=== PATIENT | female | born 1990 | race Caucasian/White ===

== ENCOUNTER 2017-05-08 09:12 | Emergency (ER) | payer SELFPAY ==
[~2017-05-08] VITALS: Ht 165.1 cm; Wt 80.0 kg
[~2017-05-08 09:12] MED LIST: CIPR500T4 PO; EMTR1TAB11 PO; HYDR-3498 PO; IBUP-1542 PO; POTA20TA15 PO; RALT400T4 PO
[2017-05-08 09:14] VITALS: Ht 165.1 cm; Wt 80.0 kg
[2017-05-08 09:56] LABS: ADD SCAN DIFF NO
[2017-05-08 09:58] LABS: ABNORMAL IP MESSAGE 1; BASOPHILS % 0.2 % (0.0-2.0); EOSINOPHILS # 0.2 10^3/ul (0.0-0.5); EOSINOPHILS % 3.4 % (0.0-7.0); HEMATOCRIT 41.8 % (37.0-47.0); HEMOGLOBIN 13.7 g/dl (12.0-16.0); LYMPHOCYTES # 1.9 10^3/ul (0.8-2.9); LYMPHOCYTES % 29.5 % (15.0-51.0); MEAN CORPUSCULAR HEMOGLOBIN 28.1 pg (29.0-33.0); MEAN CORPUSCULAR HGB CONC 32.8 g/dl (32.0-37.0); MEAN CORPUSCULAR VOLUME 85.7 fl (82.0-101.0); MEAN PLATELET VOLUME 13.3 fl (7.4-10.4); MONOCYTE # 0.4 10^3/ul (0.3-0.9); MONOCYTES % 5.8 % (0.0-11.0); NEUTROPHILS % 60.8 % (39.0-77.0); PLATELET COUNT 132 10^3/UL (140-415); RED BLOOD COUNT 4.88 10^6/ul (4.20-5.40); RED CELL DISTRIBUTION WIDTH 13.1 % (11.5-14.5); WHITE BLOOD COUNT 6.5 10^3/ul (4.8-10.8)
[2017-05-08 10:02] LABS: ADD UMIC YES; UR ASCORBIC ACID NEGATIVE (NEGATIVE); UR BILIRUBIN (Dip) NEGATIVE (NEGATIVE); UR BLOOD (Dip) 2+ mg/dL (NEGATIVE); UR CLARITY CLEAR (CLEAR); UR COLOR YELLOW (YELLOW); UR GLUCOSE (Dip) NEGATIVE (NEGATIVE); UR KETONES (Dip) NEGATIVE (NEGATIVE); UR LEUKOCYTE ESTERASE (Dip) NEGATIVE Leu/ul (NEGATIVE); UR MUCUS FEW /HPF (NONE SEEN); UR NITRITE (Dip) NEGATIVE (NEGATIVE); UR RBC 2 /HPF (0-5); UR SPECIFIC GRAVITY (Dip) 1.017 (1.003-1.030); UR TOTAL PROTEIN (Dip) NEGATIVE (NEGATIVE); UR UROBILINOGEN (Dip) NEGATIVE (NEGATIVE)
--- NOTE | 2017-05-08 11:16 | RADRPT ---
AMENDMENT: 05/08/2017 11:22:43 AM Juanito Rajan MD The first sentence of the FINDINGS section should state: The uterus measures 10.2 x 5.0 x 5.8 cm. PROCEDURE: OBSTETRICAL ULTRASOUND WITH ENDOVAGINAL IMAGES CLINICAL INDICATION: Vaginal Bleed () TECHNIQUE: Multiple sonographic images of the pelvis were obtained utilizing a transabdominal and endovaginal technique. The images were reviewed on a PACS workstation. COMPARISON: None LMP: 03/22/2017 FINDINGS: The uterus measures 10.2 x 5.0 x 5 point a cm. There is thickening of the endometrium to 8 mm. The re is no evidence of an intrauterine . The right ovary measures 3.3 x 1.9 x 2.2 cm. The left ovary measures 2.5 x 1.3 x 1.7 cm. There is no rmal vascular flow in both ovaries. There is a thick-walled 1.2 cm complex cystic lesion with low level internal echoes and minimal cherrie pheral vascular flow in the right ovary which may be a hemorrhagic/corpus luteal cyst. No significant pelvic free fluid is identified. IMPRESSION: Thickening of the endometrium to 8 mm without evidence of an intrauterine . Findings may be due to an early intrauterine although an ectopic cannot be entirely excluded . Short-term follow-up ultrasound and serial Beta HCG measurements are recommended for further eval uation. 1.2 cm complex cystic lesion in the right ovary may be a hemorrhagic/corpus luteal cyst. Attention on follow-up is recommended. RPTAT: EE Physician Wayne Date Time Electronically viewed and signed by Bryon Rajan Physician on 05/08/2017 11:22 /
[2017-05-08] MEDS ORDERED: ACET325T33 PO (11:46)
--- NOTE | 2017-05-08 12:20 | ERD ---
ER Documentation Chief Complaint Date/Time DATE: 05/08/17 TIME: 12:14 Chief Complaint 7 weeks with spotting HPI 27-year-old female patient who is a A1 presents to the ED complaining of vaginal spotting that occurred 3 days ago. Patient reports that she noticed some blood when she urinated but denies any dysuria, urgency, frequency or flank pain. States that she has some slight lower pelvic pain but did not need to take Tylenol for her pain. States that she had to change 1 pad. Reports that her PRINT COLOR OPERATOR is Dr. Haji. States that her last menses was on March 22, 2017. Denies any abdominal trauma. Denies any fever, abdominal pain, chest pain, SOB , vaginal discharge, nausea, vomiting, diarrhea. ROS All systems reviewed and are negative except as per history of present illness. Medications Home Meds Active Scripts Acetaminophen* (Tylenol*) 325 Mg Tablet, 1 TAB PO Q6 Y for PAIN AND OR ELEVATED TEMP, #20 TAB Prov:MADDISON GUADALUPE PA-C 05/08/17 Raltegravir Potassium* (Isentress*) 400 Mg Tablet, 400 MG PO BID for 7 Days, TAB Prov:RENE OCHOA 05/21/16 Emtricitabine-Tenofovir* (Truvada*) 200-300 Mg Tablet, 1 TAB PO DAILY for 7 Days , TAB Prov:RENE OCHOA 05/21/16 Ibuprofen* (Ibuprofen*) 600 Mg Tablet, 600 MG PO Q8, #30 TAB Prov:CARISSA DIAMOND DO 04/16/16 Potassium Chloride* (K-Dur*) 20 Meq Tab.prt.sr, 20 MEQ PO DAILY for 7 Days, TAB.SA Prov:CARISSA DIAMOND DO 04/16/16 Hydrocodone Bit-Acetaminophen* ([place]*) 5-325 Mg Tab, 1 TAB PO Q6 Y for PAIN, # 7 TAB Prov:MARCELLA GRAY PA-C 04/16/16 Ciprofloxacin Hcl* (Ciprofloxacin Hcl*) 500 Mg Tablet, 500 MG PO BID for 10 Days , TAB Prov:MARCELLA GRAY PA-C 04/16/16 Allergies Allergies: Coded Allergies: No Known Drug Allergies (Unverified Allergy, Unknown, 04/16/16) PMhx/Soc History of Surgery: No Anesthesia Reaction: No Hx Neurological Disorder: No Hx Respiratory Disorders: No Hx Cardiac Disorders: No Hx Psychiatric Problems: No Hx Miscellaneous Medical Probl: No Hx Alcohol Use: Yes (SOCIAL) Hx Substance Use: No Hx Tobacco Use: No Physical Exam Vitals Vital Signs Date Time Temp Pulse Resp B/P Pulse Ox O2 Delivery O2 Flow Rate FiO2 05/08/17 09:14 98.1 63 18 113/57 99 Physical Exam Const: Lls-[id number]-hrxtvkbxx, well-nourished. In no acute distress. Head: Atraumatic, normocephalic Eyes: Normal Conjunctiva without injection. No purulent discharge. ENT: Normal external ear, nose, mouth. No drooling. No trismus. Neck: No cervical midline tenderness. Full range of motion. No meningismus. No cervical lymphadenopathy. No JVD. Resp: Clear to auscultation bilaterally. No wheezing, rhonchi, rales, or crackles. No accessory muscle use. No retractions. Cardio: Regular rate and rhythm. No murmurs, rubs or gallops. Abd: Soft, slight right and left pelvic tenderness, non distended. Normal bowel sounds. No palpable masses. No rebound tenderness. No guarding. Negative McBurney's point. Negative psoas sign. Negative obturator sign. Skin: No petechiae or rashes Back: No midline tenderness. No CVA tenderness. Ext: No cyanosis, or edema. Neur: Awake and alert. Normal gait. Normal coordination. Psych: Normal Mood and Affect Result Diagram: 05/08/17 0950 Results 24 hrs Laboratory Tests Test 05/08/17 09:45 05/08/17 09:50 Urine Color YELLOW Urine Clarity CLEAR Urine pH 7.0 Urine Specific [place] 1.017 Urine Ketones NEGATIVEmg/dL Urine Nitrite NEGATIVEmg/dL Urine Bilirubin NEGATIVEmg/dL Urine Urobilinogen NEGATIVEmg/dL Urine Leukocyte Esterase NEGATIVELeu/ul Urine Microscopic RBC 2/HPF Urine Microscopic WBC 0/HPF Urine Mucus FEW/HPF Urine Hemoglobin 2+mg/dL Urine Glucose NEGATIVEmg/dL Urine Total Protein NEGATIVEmg/dl White Blood Count 6.510^3/ul Red Blood Count 4.8810^6/ul Hemoglobin 13.7g/dl Hematocrit 41.8% Mean Corpuscular Volume 85.7fl Mean Corpuscular Hemoglobin 28.1pg Mean Corpuscular Hemoglobin Concent 32.8g/dl Red Cell Distribution Width 13.1% Platelet Count 11585^3/UL Mean Platelet Volume 13.3fl Neutrophils % 60.8% Lymphocytes % 29.5% Monocytes % 5.8% Eosinophils % 3.4% Basophils % 0.2% Nucleated Red Blood Cells % 0.0/100WBC Neutrophils # 4.010^3/ul Lymphocytes # 1.910^3/ul Monocytes # 0.410^3/ul Eosinophils # 0.210^3/ul Basophils # 0.010^3/ul Nucleated Red Blood Cells # 0.010^3/ul Beta HCG, Quantitative 366.4mIU/ml Procedures/MDM This is a 27-year-old female patient who is a A1 presents the ED complaining of vaginal spotting for the last 3 days. Patient is afebrile and nontoxic-appearing. Patient has normal vital signs. An ultrasound, beta-hCG, CBC, type and RH, UA was ordered to evaluate patient. CBC: No evidence of severe infection or anemia Urine: No elevation in nitrites, leukocyte esterase, hematuria. No evidence of UTI Rh: O positive. No indication for Rhogam at this time. beta Hc.4 AMENDMENT: 05/08/2017 11:22:43 AM Juanito Rajan MD The first sentence of the FINDINGS section should state: The uterus measures 10.2 x 5.0 x 5.8 cm. PROCEDURE: OBSTETRICAL ULTRASOUND WITH ENDOVAGINAL IMAGES CLINICAL INDICATION: Vaginal Bleed () TECHNIQUE: Multiple sonographic images of the pelvis were obtained utilizing a transabdominal and endovaginal technique. The images were reviewed on a PACS workstation. COMPARISON: None LMP: 03/22/2017 FINDINGS: The uterus measures 10.2 x 5.0 x 5 point a cm. There is thickening of the endometrium to 8 mm. There is no evidence of an intrauterine . The right ovary measures 3.3 x 1.9 x 2.2 cm. The left ovary measures 2.5 x 1.3 x 1.7 cm. There is normal vascular flow in both ovaries. There is a thick-walled 1.2 cm complex cystic lesion with low level internal echoes and minimal peripheral vascular flow in the right ovary which may be a hemorrhagic/corpus luteal cyst. No significant pelvic free fluid is identified. IMPRESSION: Thickening of the endometrium to 8 mm without evidence of an intrauterine . Findings may be due to an early intrauterine although an ectopic cannot be entirely excluded. Short-term follow-up ultrasound and serial Beta HCG measurements are recommended for further evaluation. 1.2 cm complex cystic lesion in the right ovary may be a hemorrhagic/corpus luteal cyst. Attention on follow-up is recommended. Patient's bleeding symptoms have stabilized while in the department. No IUP was seen on ultrasound. At this time ectopic cannot be ruled out. Patient has a 1.2 cm cystic lesion on right ovary consistent with possible hemorrhagic/corpus luteal cyst. Patient was strictly instructed to return to the ED in 2 days for a repeat beta Hcg and ultrasound. Low suspicion for symptomatic anemia, sepsis, PID, appendicitis, ovarian torsion, tubo- ovarian abscess, surgical abdomen, or other emergent conditions. Patient was educated that there is a risk for threatened . Discharge medications: Tylenol Patient to follow up with PRINT COLOR OPERATOR in 2 days for further evaluation and treatment. Patient is to return sooner to the ED for any worsening symptoms. Patient's questions were answered. Patient understood and agreed with discharge plan. Departure Diagnosis: Primary Impression: Vaginal bleeding in patient at less than 20 weeks ges... Condition: Stable Patient Instructions: Bleeding During Early Referrals: [facility] YOU HAVE RECEIVED A MEDICAL SCREENING EXAM AND THE RESULTS INDICATE THAT YOU DO NOT HAVE A CONDITION THAT REQUIRES URGENT TREATMENT IN THE EMERGENCY DEPARTMENT. FURTHER EVALUATION AND TREATMENT OF YOUR CONDITION CAN WAIT UNTIL YOU ARE SEEN IN YOUR DOCTORS OFFICE WITHIN THE NEXT 1-2 DAYS. IT IS YOUR RESPONSIBILITY TO MAKE AN APPOINTMENT FOR FOLOW-UP CARE. IF YOU HAVE A PRIMARY DOCTOR --you should call your primary doctor and schedule an appointment IF YOU DO NOT HAVE A PRIMARY DOCTOR YOU CAN CALL OUR PHYSICIAN REFERRAL HOTLINE AT IF YOU CAN NOT AFFORD TO SEE A PHYSICIAN YOU CAN CHOSE FROM THE FOLLOWING [facility] [address] [facility] [address] [facility] [address] [facility] [address] [facility] [address] [facility]. [facility] [address] [facility]. [facility] YOU HAVE RECEIVED A MEDICAL SCREENING EXAM AND THE RESULTS INDICATE THAT YOU DO NOT HAVE A CONDITION THAT REQUIRES URGENT TREATMENT IN THE EMERGENCY DEPARTMENT. FURTHER EVALUATION AND TREATMENT OF YOUR CONDITION CAN WAIT UNTIL YOU ARE SEEN IN YOUR DOCTORS OFFICE WITHIN THE NEXT 1-2 DAYS. IT IS YOUR RESPONSIBILITY TO MAKE AN APPOINTMENT FOR FOLOW-UP CARE. IF YOU HAVE A PRIMARY DOCTOR --you should call your primary doctor and schedule and appointment IF YOU DO NOT HAVE A PRIMARY DOCTOR YOU CAN CALL OUR PHYSICIAN REFERRAL HOTLINE AT . IF YOU CAN NOT AFFORD TO SEE A PHYSICIAN YOU CAN CHOSE FROM THE FOLLOWING [facility] INSTITUTIONS: [facility] [address] [place] [address] [facility] [address] [place] [address] [facility] + [facility] [address] [place] [address] [facility] URGENT CARE/SPECIALTIES Additional Instructions: FOLLOW UP HERE IN THE ED IN 2 DAYS FOR A REPEAT BETA HCG (HORMONE) BLOOD TEST AND ULTRASOUND.Return to this facility sooner if you are not improving as expected - worsening pelvic pain, nausea, vomiting, worsening, vaginal bleeding , pain with urination, etc. MADDISON GUADALUPE PA-C May 08, 2017 12:20
== END 2017-05-08 12:05 | disposition home or self-care (01) ==
LOC: FTE 09:12
DX: O20.9 Hemorrhage in early pregnancy, unspecified (principal); R10.2 Pelvic and perineal pain; Z3A.01 Less than 8 weeks gestation of pregnancy
CPT/HCPCS: 36415; 76801; 76817; 81001; 84702; 85025; 86900; 86901

== ENCOUNTER 2017-05-10 09:09 | Emergency (ER) | payer SELFPAY ==
[~2017-05-10] VITALS: Ht 167.6 cm; Wt 71.0 kg
[~2017-05-10 09:09] MED LIST changes: +ACET325T33 PO
[2017-05-10 09:10] VITALS: Ht 167.6 cm; Wt 71.0 kg
[2017-05-10 09:54] LABS: ADD SCAN DIFF NO
[2017-05-10 10:00] LABS: BASOPHILS % 0.2 % (0.0-2.0); EOSINOPHILS # 0.2 10^3/ul (0.0-0.5); EOSINOPHILS % 3.2 % (0.0-7.0); HEMATOCRIT 40.6 % (37.0-47.0); HEMOGLOBIN 12.8 g/dl (12.0-16.0); LYMPHOCYTES % 32.7 % (15.0-51.0); MEAN CORPUSCULAR HEMOGLOBIN 27.3 pg (29.0-33.0); MEAN CORPUSCULAR HGB CONC 31.5 g/dl (32.0-37.0); MEAN CORPUSCULAR VOLUME 86.6 fl (82.0-101.0); MEAN PLATELET VOLUME 12.6 fl (7.4-10.4); MONOCYTE # 0.3 10^3/ul (0.3-0.9); MONOCYTES % 5.7 % (0.0-11.0); NEUTROPHIL # 3.4 10^3/ul (1.6-7.5); NEUTROPHILS % 57.7 % (39.0-77.0); PLATELET COUNT 124 10^3/UL (140-415); RED BLOOD COUNT 4.69 10^6/ul (4.20-5.40); RED CELL DISTRIBUTION WIDTH 13.2 % (11.5-14.5)
[2017-05-10 10:05] LABS: ADD UMIC NO; UR ASCORBIC ACID NEGATIVE (NEGATIVE); UR BILIRUBIN (Dip) NEGATIVE (NEGATIVE); UR BLOOD (Dip) NEGATIVE (NEGATIVE); UR CLARITY CLEAR (CLEAR); UR COLOR STRAW (YELLOW); UR GLUCOSE (Dip) NEGATIVE (NEGATIVE); UR KETONES (Dip) NEGATIVE (NEGATIVE); UR LEUKOCYTE ESTERASE (Dip) NEGATIVE Leu/ul (NEGATIVE); UR NITRITE (Dip) NEGATIVE (NEGATIVE); UR SPECIFIC GRAVITY (Dip) 1.009 (1.003-1.030); UR TOTAL PROTEIN (Dip) NEGATIVE (NEGATIVE); UR UROBILINOGEN (Dip) NEGATIVE (NEGATIVE)
--- NOTE | 2017-05-10 10:16 | RADRPT ---
PROCEDURE: US OB. CLINICAL INDICATION: 27-year-old female with vaginal bleeding. TECHNIQUE: Transabdominal and transvaginal views of the pelvis are available for review. COMPARISON: s sonogram 05/08/2017 10:44 a.m. FINDINGS: The uterus is anteflexed and measures 8.3 cm sagittal by 5 cm AP by 5.9 cm transverse. On transabdo david imaging the endometrial thickness is 0.97 cm. Transvaginal imaging was performed. The uterus measured 9.1 cm sagittal by 4.5 cm AP by 5.7 cm transverse. The endometrial thickness is 0.63 mill imeters with no gestational sac or free fluid identified within the endometrial canal. The right ovary measured 2.7 x 2.5 by 2 cm with normal blood flow. The left ovary measures 3.2 x 1. 7 5 2 cm with normal blood flow and Doppler imaging. No abnormal adnexal mass is identified. IMPRESSION: 1. No gestational sac or intrauterine gestation is identified. A normal early IUP, ectopic pregnanc y were completed might present this fashion. When no IUP is demonstrated, correlation with serial beta HCG is recommended. With a quantitative beta HCG >2000, the differential diagnosis includes spontaneous or ecto pic . Therefore, clinical follow-up is recommended including correlation with serial quant itative beta HCG levels and repeat sonogram with rising levels and/or/or localized or persistent heber n. With quantitative beta HCG < 2000, the differential diagnosis includes early normal IVP or spontaneo us or ectopic . Therefore, clinical follow-up is recommended including correlatio n with serial quantitative beta HCG levels and arising levels and / or persistent pain. 2. Normal ovaries. 3. Findings were phoned to nurse practitioner Tianna Guillen. RPTAT:AAJJ Physician Steven Date Time Electronically viewed and signed by Physician Steven on 05/10/2017 10:16 JENSEN/
--- NOTE | 2017-05-10 11:00 | ERD ---
ER Documentation Chief Complaint Date/Time DATE: 05/10/17 TIME: 10:54 Chief Complaint 2 DAY REPEAT HCG, VERY LITTLE VAG BLEEDING TODAY HPI This is a 27-year-old female presenting to the emergency department for vaginal bleeding while . Patient is a A1 with last menstrual period 2016. Patient states she developed heavy vaginal bleeding 2 days ago that has improved in the last 2 days. Patient now reports light pink vaginal spotting. No passage of clots or tissue. Denies pelvic pain or pelvic cramping. No nausea, vomiting, diarrhea or abdominal pain. No dysuria, hematuria, urinary frequency or urinary urgency. No vaginal discharge or itching. No vaginal lesions. Patient was seen here 2 days ago and had ultrasound and blood work done. Pelvic ultrasound reviewed by radiologist did not show IUP and therefore patient was told to return for repeat ultrasound and blood work. Patient's GOVERNMENT RELATIONS ANALYST is Dr. Thapa. ROS All systems reviewed and are negative except as per history of present illness. Medications Home Meds Active Scripts Acetaminophen* (Tylenol*) 325 Mg Tablet, 1 TAB PO Q6 Y for PAIN AND OR ELEVATED TEMP, #20 TAB Prov:MADDISON GUADALUPE PA-C 05/08/17 Raltegravir Potassium* (Isentress*) 400 Mg Tablet, 400 MG PO BID for 7 Days, TAB Prov:RENE OCHOA 05/21/16 Emtricitabine-Tenofovir* (Truvada*) 200-300 Mg Tablet, 1 TAB PO DAILY for 7 Days , TAB Prov:RENE OCHOA 05/21/16 Ibuprofen* (Ibuprofen*) 600 Mg Tablet, 600 MG PO Q8, #30 TAB Prov:CARISSA DIAMOND DO 04/16/16 Potassium Chloride* (K-Dur*) 20 Meq Tab.prt.sr, 20 MEQ PO DAILY for 7 Days, TAB.SA Prov:CARISSA DIAMOND DO 04/16/16 Hydrocodone Bit-Acetaminophen* ([place]*) 5-325 Mg Tab, 1 TAB PO Q6 Y for PAIN, # 7 TAB Prov:MARCELLA GRAY PA-C 04/16/16 Ciprofloxacin Hcl* (Ciprofloxacin Hcl*) 500 Mg Tablet, 500 MG PO BID for 10 Days , TAB Prov:MARCELLA GRAY PA-C 04/16/16 Allergies Allergies: Coded Allergies: No Known Drug Allergies (Unverified Allergy, Unknown, 04/16/16) PMhx/Soc Medical and Surgical Hx: pt denies Medical Hx, pt denies Surgical Hx History of Surgery: No Anesthesia Reaction: No Hx Neurological Disorder: No Hx Respiratory Disorders: No Hx Cardiac Disorders: No Hx Psychiatric Problems: No Hx Miscellaneous Medical Probl: No Hx Alcohol Use: Yes (SOCIAL) Hx Substance Use: No Hx Tobacco Use: No Physical Exam Vitals Vital Signs Date Time Temp Pulse Resp B/P Pulse Ox O2 Delivery O2 Flow Rate FiO2 05/10/17 09:10 98.4 68 20 118/64 100 Physical Exam Const: Alert, no acute distress. Head: Atraumatic Eyes: Normal Conjunctiva ENT: Normal External Ears, Nose and Mouth. Neck: Full range of motion..~ No meningismus. Resp: Clear to auscultation bilaterally Cardio: Regular rate and rhythm, no murmurs Abd: Soft, non tender, non distended. Normal bowel sounds Skin: No petechiae or rashes Back: No midline or flank tenderness Ext: No cyanosis, or edema Neur: Awake and alert Psych: Normal Mood and Affect Result Diagram: 05/10/17 0940 Results 24 hrs Laboratory Tests Test 05/10/17 09:40 White Blood Count 6.010^3/ul Red Blood Count 4.6910^6/ul Hemoglobin 12.8g/dl Hematocrit 40.6% Mean Corpuscular Volume 86.6fl Mean Corpuscular Hemoglobin 27.3pg Mean Corpuscular Hemoglobin Concent 31.5g/dl Red Cell Distribution Width 13.2% Platelet Count 91278^3/UL Mean Platelet Volume 12.6fl Neutrophils % 57.7% Lymphocytes % 32.7% Monocytes % 5.7% Eosinophils % 3.2% Basophils % 0.2% Nucleated Red Blood Cells % 0.0/100WBC Neutrophils # 3.410^3/ul Lymphocytes # 2.010^3/ul Monocytes # 0.310^3/ul Eosinophils # 0.210^3/ul Basophils # 0.010^3/ul Nucleated Red Blood Cells # 0.010^3/ul Urine Color STRAW Urine Clarity CLEAR Urine pH 8.0 Urine Specific [place] 1.009 Urine Ketones NEGATIVEmg/dL Urine Nitrite NEGATIVEmg/dL Urine Bilirubin NEGATIVEmg/dL Urine Urobilinogen NEGATIVEmg/dL Urine Leukocyte Esterase NEGATIVELeu/ul Urine Hemoglobin NEGATIVEmg/dL Urine Glucose NEGATIVEmg/dL Urine Total Protein NEGATIVEmg/dl Beta HCG, Quantitative 115.9mIU/ml Procedures/[place] [address] Radiology Main Line: [phone] DIAGNOSTIC IMAGING REPORT Patient: RUMA MENDOZA : 1990 Age: 27 Sex: F MR #: [id number] DOS: 05/10/17 0927 Ordering MD: MARYBEL KEARNEY NP Location: [facility] Room/Bed: PROCEDURE: US OB. CLINICAL INDICATION: 27-year-old female with vaginal bleeding. TECHNIQUE: Transabdominal and transvaginal views of the pelvis are available for review. COMPARISON: [facility] sonogram 05/08/2017 10:44 a.m. FINDINGS: The uterus is anteflexed and measures 8.3 cm sagittal by 5 cm AP by 5.9 cm transverse. On transabdominal imaging the endometrial thickness is 0.97 cm. Transvaginal imaging was performed. The uterus measured 9.1 cm sagittal by 4.5 cm AP by 5.7 cm transverse. The endometrial thickness is 0.63 millimeters with no gestational sac or free fluid identified within the endometrial canal. The right ovary measured 2.7 x 2.5 by 2 cm with normal blood flow. The left ovary measures 3.2 x 1.7 5 2 cm with normal blood flow and Doppler imaging. No abnormal adnexal mass is identified. IMPRESSION: 1. No gestational sac or intrauterine gestation is identified. A normal early IUP, ectopic were completed might present this fashion. When no IUP is demonstrated, correlation with serial beta HCG is recommended. With a quantitative beta HCG >2000, the differential diagnosis includes spontaneous or ectopic . Therefore, clinical follow-up is recommended including correlation with serial quantitative beta HCG levels and repeat sonogram with rising levels and/or/or localized or persistent pain. With quantitative beta HCG < 2000, the differential diagnosis includes early normal IVP or spontaneous or ectopic . Therefore, clinical follow-up is recommended including correlation with serial quantitative beta HCG levels and arising levels and / or persistent pain. 2. Normal ovaries. 3. Findings were phoned to nurse practitioner Marybel Monroy MDM: This is a 27-year-old female presenting to emergency department for vaginal bleeding while . Patient's last menstrual period 03/22/2017. Patient is a A1. Vital signs are stable. Patient now reports light pink spotting. No heavy bleeding or passage of clots or tissue. No history of ectopic . No history of complications at with previous pregnancies. Labs showed no significant anemia or infection. Beta hCG is 115.9 which is trending downward since last visit on 05/08/2017 in which beta- hCG was 366.4. Urine is negative for infection. OB ultrasound reviewed by radiologist as no gestational sac or intrauterine gestation is identified. Normal ovaries. Patient remains alert and stable throughout ED visit. Vital signs are stable. Patient remains afebrile. Differential diagnosis includes but not limited to ectopic , threatened , missed , normal , subchorionic hemorrhage , ruptured ovarian cyst, UTI or pyelonephritis. Instructed patient to return in 2 days for repeat lab work and ultrasound. Patient is appropriate for outpatient management. Instructed patient to follow- up here in the ED in 2 days. Return to ED sooner for any high fever, chest pain , difficulty breathing, shortness breath, wheezing, vomiting, diarrhea, abdominal pain or any new or worsening symptoms. Patient verbalizes understanding. All questions answered at discharge. Departure Diagnosis: Primary Impression: Vaginal bleeding in patient at less than 20 weeks ges... Condition: Stable Patient Instructions: Bleeding During Early Referrals: [facility] YOU HAVE RECEIVED A MEDICAL SCREENING EXAM AND THE RESULTS INDICATE THAT YOU DO NOT HAVE A CONDITION THAT REQUIRES URGENT TREATMENT IN THE EMERGENCY DEPARTMENT. FURTHER EVALUATION AND TREATMENT OF YOUR CONDITION CAN WAIT UNTIL YOU ARE SEEN IN YOUR DOCTORS OFFICE WITHIN THE NEXT 1-2 DAYS. IT IS YOUR RESPONSIBILITY TO MAKE AN APPOINTMENT FOR FOLOW-UP CARE. IF YOU HAVE A PRIMARY DOCTOR --you should call your primary doctor and schedule an appointment IF YOU DO NOT HAVE A PRIMARY DOCTOR YOU CAN CALL OUR PHYSICIAN REFERRAL HOTLINE AT IF YOU CAN NOT AFFORD TO SEE A PHYSICIAN YOU CAN CHOSE FROM THE FOLLOWING [facility] CLINICS [facility] [address] [facility]. [facility] [address] [facility]. [facility] [address] [facility] [address] [facility] [address] [facility]. [facility]. [address] [facility]. [facility] YOU HAVE RECEIVED A MEDICAL SCREENING EXAM AND THE RESULTS INDICATE THAT YOU DO NOT HAVE A CONDITION THAT REQUIRES URGENT TREATMENT IN THE EMERGENCY DEPARTMENT. FURTHER EVALUATION AND TREATMENT OF YOUR CONDITION CAN WAIT UNTIL YOU ARE SEEN IN YOUR DOCTORS OFFICE WITHIN THE NEXT 1-2 DAYS. IT IS YOUR RESPONSIBILITY TO MAKE AN APPOINTMENT FOR FOLOW-UP CARE. IF YOU HAVE A PRIMARY DOCTOR --you should call your primary doctor and schedule and appointment IF YOU DO NOT HAVE A PRIMARY DOCTOR YOU CAN CALL OUR PHYSICIAN REFERRAL HOTLINE AT . IF YOU CAN NOT AFFORD TO SEE A PHYSICIAN YOU CAN CHOSE FROM THE FOLLOWING [facility] INSTITUTIONS: [facility] [address] [place] [address] [facility] [address] [place] [address] [facility] [address] [place] [address] GOVERNMENT RELATIONS ANALYST [place] [address] [facility] [address] [place], [place] [id number] OFFICE FAX STACY THOMASON [address] [place], [place] [id number] [place] [address] [place], [place] [phone] FELIPE SUTTON [address] [facility], [address] [address] [address] [address] [place], [place] [phone] [facility] [address] [place], [place] [id number] [address] [facility] [address] - [address] [facility] [id number] NIELSEN, JORGE A [address] [facility]. [address], [facility] [address] [address] [facility] [address] [place] [address] Additional Instructions: Return to ED in 2 days for repeat blood work and ultrasound. Return to ED for any high fever, chest pain, difficulty breathing, shortness breath, wheezing, vomiting, diarrhea, abdominal pain or any new or worsening symptoms. MARYBEL KEARNEY NP May 10, 2017 11:00
== END 2017-05-10 10:59 | disposition home or self-care (01) ==
LOC: FTE 09:09
DX: O20.9 Hemorrhage in early pregnancy, unspecified (principal); R10.2 Pelvic and perineal pain; Z3A.01 Less than 8 weeks gestation of pregnancy
CPT/HCPCS: 36415; 76801; 76817; 81003; 84702; 85025

== ENCOUNTER 2017-10-12 14:01 | Emergency (ER) | payer OTHER ==
[~2017-10-12] VITALS: Ht 165.1 cm; Wt 76.5 kg
[2017-10-12 14:02] VITALS: Ht 165.1 cm; Wt 76.5 kg
[2017-10-12 14:41] LABS: ABNORMAL IP MESSAGE 1; BASOPHILS % 0.2 % (0.0-2.0); EOSINOPHILS # 0.6 10^3/ul (0.0-0.5); EOSINOPHILS % 7.4 % (0.0-7.0); HEMATOCRIT 35.6 % (37.0-47.0); HEMOGLOBIN 12.4 g/dl (12.0-16.0); LYMPHOCYTES # 1.8 10^3/ul (0.8-2.9); LYMPHOCYTES % 21.7 % (15.0-51.0); MEAN CORPUSCULAR HEMOGLOBIN 30.8 pg (29.0-33.0); MEAN CORPUSCULAR HGB CONC 34.8 g/dl (32.0-37.0); MEAN CORPUSCULAR VOLUME 88.3 fl (82.0-101.0); MEAN PLATELET VOLUME 13.4 fl (7.4-10.4); MONOCYTE # 0.5 10^3/ul (0.3-0.9); MONOCYTES % 5.8 % (0.0-11.0); NEUTROPHIL # 5.3 10^3/ul (1.6-7.5); NEUTROPHILS % 64.3 % (39.0-77.0); PLATELET COUNT 106 10^3/UL (140-415); RED BLOOD COUNT 4.03 10^6/ul (4.20-5.40); RED CELL DISTRIBUTION WIDTH 12.6 % (11.5-14.5); WHITE BLOOD COUNT 8.2 10^3/ul (4.8-10.8)
--- NOTE | 2017-10-12 14:44 | ERD ---
ER Documentation Chief Complaint Chief Complaint light bright red vag bleeding today, 18 wks lmp 06/07/17 HPI 27-year-old female, A2 at 18w1d by LMP 06/07/17, presents to the emergency department complaining of 1 day with mild vaginal bleeding described as spotting, intermittent, noticed it after wiping herself. No abdominal pain, no fever, no urinary symptoms. The patient denies vaginal discharge or vaginal leakage. No history of trauma. Positive care ROS SYSTEMIC symptoms: no fever, chills, no night sweats, no weight loss EYE symptoms: No blurred vision, no eye discharge OTOLARYNGEAL symptoms: No hearing loss. No ear pain, no sore throat CARDIOVASCULAR symptoms: No chest pain or discomfort, no palpitations. PULMONARY symptoms: No dyspnea, no cough, no wheezing. GASTROINTESTINAL symptoms: No abdominal pain, no nausea, no vomiting, no diarrhea MUSCULOSKELETAL symptoms: No arthralgias, no muscle aches. NEUROLOGY symptoms: No confusion, no syncope, no numbness or tingling. SKIN: No rashes Medications Home Meds Active Scripts Nitrofurantoin Monohyd Macrocr* (Macrobid*) 100 Mg Capsr, 100 MG PO BID for 7 Days, CAP Prov:SERG NAYAK MD 10/12/17 Acetaminophen* (Tylenol*) 325 Mg Tablet, 1 TAB PO Q6 Y for PAIN AND OR ELEVATED TEMP, #20 TAB Prov:MADDISON GUADALUPE PA-C 05/08/17 Raltegravir Potassium* (Isentress*) 400 Mg Tablet, 400 MG PO BID for 7 Days, TAB Prov:RENE OCHOA 05/21/16 Emtricitabine-Tenofovir* (Truvada*) 200-300 Mg Tablet, 1 TAB PO DAILY for 7 Days , TAB Prov:RENE OCHOA 05/21/16 Ibuprofen* (Ibuprofen*) 600 Mg Tablet, 600 MG PO Q8, #30 TAB Prov:CARISSA DIAMOND DO 04/16/16 Potassium Chloride* (K-Dur*) 20 Meq Tab.prt.sr, 20 MEQ PO DAILY for 7 Days, TAB.SA Prov:CARISSA DIAMOND DO 04/16/16 Hydrocodone Bit-Acetaminophen* ([place]*) 5-325 Mg Tab, 1 TAB PO Q6 Y for PAIN, # 7 TAB Prov:MARCELLA GRAY PA-C 04/16/16 Ciprofloxacin Hcl* (Ciprofloxacin Hcl*) 500 Mg Tablet, 500 MG PO BID for 10 Days , TAB Prov:MARCELLA GRAY PA-C 04/16/16 Allergies Allergies: Coded Allergies: No Known Drug Allergies (Unverified Allergy, Unknown, 04/16/16) PMhx/Soc History of Surgery: No Anesthesia Reaction: No Hx Neurological Disorder: No Hx Respiratory Disorders: No Hx Cardiac Disorders: No Hx Psychiatric Problems: No Hx Miscellaneous Medical Probl: No Hx Alcohol Use: Yes (SOCIAL) Hx Substance Use: No Hx Tobacco Use: No Physical Exam Vitals Vital Signs Date Time Temp Pulse Resp B/P Pulse Ox O2 Delivery O2 Flow Rate FiO2 10/12/17 14:02 97.6 66 18 119/63 97 Physical Exam Patient is in no acute distress, vital signs stable. Alert and fully oriented. EYES: PERRLA, EOMI, Sclera and conjunctiva appear normal. EARS: Canals clear, tympanic membranes WNL THROAT: Normal oropharynx. NECK: Supple, No lymphadenopathy. Full ROM without pain or tenderness. HEART: RRR, no rubs, murmurs, clicks or gallops. LUNGS: Clear to auscultation. ABDOMEN: Soft, non-tender without masses or hepatosplenomegaly. EXTREMITIES: No edema bilaterally. BACK: Full ROM, no deformity, normal back exam NEURO: Cranial nerves grossly intact, no motor or sensory deficit Result Diagram: 10/12/17 1435 Results 24 hrs Laboratory Tests Test 10/12/17 14:35 White Blood Count 8.210^3/ul Red Blood Count 4.0310^6/ul Hemoglobin 12.4g/dl Hematocrit 35.6% Mean Corpuscular Volume 88.3fl Mean Corpuscular Hemoglobin 30.8pg Mean Corpuscular Hemoglobin Concent 34.8g/dl Red Cell Distribution Width 12.6% Platelet Count 42653^3/UL Mean Platelet Volume 13.4fl Neutrophils % 64.3% Lymphocytes % 21.7% Monocytes % 5.8% Eosinophils % 7.4% Basophils % 0.2% Nucleated Red Blood Cells % 0.0/100WBC Neutrophils # 5.310^3/ul Lymphocytes # 1.810^3/ul Monocytes # 0.510^3/ul Eosinophils # 0.610^3/ul Basophils # 0.010^3/ul Nucleated Red Blood Cells # 0.010^3/ul Urine Color YELLOW Urine Clarity SLIGHTLY CLOUDY Urine pH 8.0 Urine Specific [place] 1.018 Urine Ketones NEGATIVEmg/dL Urine Nitrite NEGATIVEmg/dL Urine Bilirubin NEGATIVEmg/dL Urine Urobilinogen 2+mg/dL Urine Leukocyte Esterase TRACELeu/ul Urine Microscopic RBC 9/HPF Urine Microscopic WBC 5/HPF Urine Squamous Epithelial Cells FEW/HPF Urine Bacteria FEW/HPF Urine Hemoglobin 3+mg/dL Urine Glucose NEGATIVEmg/dL Urine Total Protein 1+mg/dl Beta HCG, Quantitative 06053.0mIU/ml [place] [id number] Radiology Main Line: [phone] DIAGNOSTIC IMAGING REPORT Patient: RUMA MENDOZA : 1990 Age: 27 Sex: F MR #: [id number] DOS: 10/12/17 1423 Ordering MD: SERG NAYAK MD Location: [facility] Room/Bed: PROCEDURE: US OB. CLINICAL INDICATION: Vaginal spotting TECHNIQUE: Multiple sonographic images of the pelvis and gravid uterus were obtained. The images were reviewed on a PACS workstation. COMPARISON: None FINDINGS: There is a single viable intrauterine gestation. Cardiac activity is present with 148 beats per minute. There is a variable presentation. The placenta is posterior. There is no evidence for an abruption or placenta previa. Measurements were made in order to determine age. The results are as follows: BPD = 3.5 cm HC = 13.3 cm AC = 11.7 cm FL = 2.5 cm Estimated gestational age of approximately 17 weeks and 1 day based on ultrasound measurements. Clinical age: 18 weeks and 1 day. The estimated date of delivery is 03/21/18, based on ultrasound measurements. The EFW = 195 g, 12%, based on LMP age. RPTAT: AA IMPRESSION: Single viable intrauterine gestation of approximately 17 weeks and 1 day based on ultrasound measurements. .Sher Khris, MD, MD Date Time Electronically viewed and signed by .Sher Pinedo MD, MD on 10/12/2017 15: 49 .S/ CC: SERG NAYAK MD Procedures/MDM 22y/o female patient A2 at approximately 18w1d per last menstrual period, presents to the ED c/o vaginal spotting since this morning. Vital signs stable , Physical exam unremarkable. Differential diagnosis include but not limited to : UTI, threatening , incomplete versus complete , ectopic , physiologic implantation bleeding, molar . Pertinent Data: Labs: CBC: normal. HC OB US: Single viable intrauterine gestation of approximately 17 weeks and 1 day based on ultrasound measurements. Physical examination and clinical presentation most likely consistent with UTI and threatening . During the ED course the patient remained hemodynamically stable and asymptomatic. Results and clinical impression discussed with patient who agrees with management. The patient is stable to be treated outpatient and will be discharged home with close monitoring and follow-up in 2 days with her primary physician. Bed rest and pelvic rest recommended until further medical evaluation. The patient was instructed regarding the outcomes and the potential complications like severe bleeding and . If the patient presents severe bleeding or pain, she was instructed to return to the hospital immediately. Disclaimer: Inadvertent spelling and grammatical errors are likely due to EHR/ dictation software use and do not reflect on the overall quality of patient care. Also, please note that the electronic time recorded on this note does not necessarily reflect the actual time of the patient encounter. Departure Diagnosis: Primary Impression: UTI (urinary tract infection) Additional Impression: Vaginal bleeding in patient at less than 20 weeks gestation Condition: Stable Additional Instructions: Call your primary care doctor TOMORROW for an appointment during the next 1-2 days. See the doctor sooner or return here if your condition worsens before your appointment time. Thank you very much for allowing us to participate in your care. Your health and safety is our top priority at [facility]. Have prescriptions filled and follow precisely the directions on the label. Follow-up with primary care provider during the next 4 days and bring all the information and medications prescribed. If illness has not improved in 2 days, then make an appointment with primary care provider. If the provider is unavailable, return to the Emergency Department immediately. SERG NAYAK MD Oct 12, 2017 14:44
[2017-10-12 14:52] LABS: POSITIVE DIFF @See below
[2017-10-12 15:24] LABS: ADD UMIC YES; UR ASCORBIC ACID NEGATIVE (NEGATIVE); UR BACTERIA FEW /HPF (NONE SEEN); UR BILIRUBIN (Dip) NEGATIVE (NEGATIVE); UR BLOOD (Dip) 3+ mg/dL (NEGATIVE); UR CLARITY SLIGHTLY CLOUDY (CLEAR); UR COLOR YELLOW (YELLOW); UR GLUCOSE (Dip) NEGATIVE (NEGATIVE); UR KETONES (Dip) NEGATIVE (NEGATIVE); UR LEUKOCYTE ESTERASE (Dip) TRACE Leu/ul (NEGATIVE); UR NITRITE (Dip) NEGATIVE (NEGATIVE); UR RBC 9 /HPF (0-5); UR SPECIFIC GRAVITY (Dip) 1.018 (1.003-1.030); UR SQUAMOUS EPITHELIAL CELL FEW /HPF (FEW); UR TOTAL PROTEIN (Dip) 1+ mg/dl (NEGATIVE); UR UROBILINOGEN (Dip) 2+ mg/dL (NEGATIVE)
--- NOTE | 2017-10-12 15:50 | RADRPT ---
PROCEDURE: US OB. CLINICAL INDICATION: Vaginal spotting TECHNIQUE: Multiple sonographic images of the pelvis and gravid uterus were obtained. The images were reviewed on a PACS workstation. COMPARISON: None FINDINGS: There is a single viable intrauterine gestation. Cardiac activity is present with 148 beats per min leslee. There is a variable presentation. The placenta is posterior. There is no evidence for an abruption or placenta previa. Measurements were made in order to determine age. The results are as follows: BPD =3.5 cm HC =13.3 cm AC =11.7 cm FL =2.5 cm Estimated gestational age of approximately 17 weeks and 1 day based on ultrasound measurements. Clinical age: 18 weeks and 1 day. The estimated date of delivery is 03/21/18, based on ultrasound measurements. The EFW = 195 g, 12%, based on LMP age. RPTAT: AA IMPRESSION: Single viable intrauterine gestation of approximately 17 weeks and 1 day based on ultrasound measur ements. .Sher Pinedo MD, MD Date Time Electronically viewed and signed by .Sher Pinedo MD, MD on 10/12/2017 15:49 .S/
[2017-10-12] MEDS ORDERED: NITR-58 PO (15:54)
== END 2017-10-12 16:15 | disposition home or self-care (01) ==
LOC: FTE 14:01
DX: O20.9 Hemorrhage in early pregnancy, unspecified (principal); O23.42 Unspecified infection of urinary tract in pregnancy, second trimester; R10.2 Pelvic and perineal pain; Z3A.17 17 weeks gestation of pregnancy
CPT/HCPCS: 36415; 76805; 81001; 84702; 85025; 87086; Z7502

== ENCOUNTER 2019-03-28 09:34 | Emergency (ER) | payer OTHER ==
[~2019-03-28] VITALS: Ht 167.6 cm; Wt 93.0 kg
[~2019-03-28 09:34] MED LIST changes: +ISEN400 PO; +NITR-58 PO; -RALT400T4 PO
[2019-03-28 09:59] VITALS: BP 133/69; PULSE 80; RESP 18; Ht 167.6 cm; Wt 93.0 kg
[2019-03-28] MEDS ORDERED: IBUP-1542 PO (10:34)
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
== END 2019-03-28 10:46 | disposition home or self-care (01) ==
LOC: FTE 09:34
DX: M54.2 Cervicalgia (principal); M54.9 Dorsalgia, unspecified
CPT/HCPCS: 99282